=== PATIENT | male | born 1965 | race Caucasian/White ===

== ENCOUNTER 2024-09-13 16:45 | Emergency (ER) | payer BC ==
[~2024-09-13] VITALS: Ht 162.6 cm; Wt 77.0 kg
[2024-09-13 16:53] VITALS: TEMP 36.9; O2SAT 99
[2024-09-13] MEDS: LIDOCAINE HCL 1% 20ML VIAL INFIL ONE (19:00)
[2024-09-13] MEDS: TETANUS, DIPHTHERIA, PERTUSSIS VAC/PF 0.5ML (>10YR OLD) IM ONE (19:34)
[2024-09-13] MEDS: BACITRACIN ZINC OINT UDPKT TOP ONE (19:35)
[2024-09-13] MEDS ORDERED: AMOX1TAB16 MT (20:42)
[2024-09-13] MEDS ORDERED: ACET-2708 MT (20:42)
[2024-09-13 21:25] VITALS: BP 151/63; PULSE 70; RESP 18; O2SAT 99
== END 2024-09-13 21:27 | disposition home or self-care (01) ==
LOC: ER 16:45
DX: S61.451A Open bite of right hand, initial encounter (principal); I10 Essential (primary) hypertension; E11.9 Type 2 diabetes mellitus without complications; Z23 Encounter for immunization; W54.0XXA Bitten by dog, initial encounter; Y93.89 Activity, other specified; Y92.89 Other specified places as the place of occurrence of the external cause; Y99.8 Other external cause status
CPT/HCPCS: 99283; 73120; 90715; 90471; J2003; 96374

== ENCOUNTER 2024-09-20 16:11 | Emergency (ER) | payer BC ==
[~2024-09-20] VITALS: Ht 162.6 cm; Wt 77.0 kg
[~2024-09-20 16:11] MED LIST: ACET-2708 MT; AMOX1TAB16 MT
[2024-09-20 16:15] VITALS: O2SAT 99
[2024-09-20 18:02] VITALS: BP 140/72; PULSE 68; RESP 12; TEMP 36.9; O2SAT 99
== END 2024-09-20 18:02 | disposition home or self-care (01) ==
LOC: ER 16:11
DX: S61.411D Laceration without foreign body of right hand, subsequent encounter (principal); E11.9 Type 2 diabetes mellitus without complications; I10 Essential (primary) hypertension; X58.XXXD Exposure to other specified factors, subsequent encounter
CPT/HCPCS: 99281